=== PATIENT | female | born 1960 | race Two or more races ===

== ENCOUNTER → 2017-12-28 | Outpatient (REF) | payer OTHER | LOC: M SFHCLERA 11:17 | DX: K13.79 Other lesions of oral mucosa (principal); R50.9 Fever, unspecified ==

== ENCOUNTER 2018-03-20 20:24 | Emergency (ER) | payer OTHER ==
[2018-03-20] MEDS: NS 500 ML IV (22:18)
[2018-03-20 22:24] LABS: BASO # 0.1 10^3/uL (0.0-0.2); BASO % 0.8 % (0.0-1.0); EOS # 0.2 10^3/uL (0.0-0.50); EOS % 1.7 % (0.0-3.0); HEMATOCRIT 39.9 % (36.0-47.0); HEMOGLOBIN 13.4 g/dl (12.0-15.5); IMMATURE GRANULOCYTE % 0.1 % (0-3.0); LYMPH # 3.9 10^3/uL (1.5-4.5); LYMPH % 41.6 % (24.0-44.0); MEAN CORPUSCULAR HEMOGLOBIN 24.9 pg (27.0-33.0); MEAN CORPUSCULAR HGB CONC 33.6 g/dl (32.0-36.5); MONO # 0.5 10^3/uL (0.0-0.8); MONO % 5.6 % (0.0-5.0); NEUTROPHILS # 4.7 10^3/uL (1.8-7.7); NEUTROPHILS % 50.2 % (36.0-66.0); PLATELET COUNT, AUTOMATED 303 10^3/uL (150-450); RED BLOOD COUNT 5.39 10^6/uL (4.00-5.40); RED CELL DISTRIBUTION WIDTH 14.4 % (11.5-14.5); WHITE BLOOD COUNT 9.3 10^3/uL (4.0-10.0)
[2018-03-20 22:51] LABS: ALBUMIN 4.1 GM/DL (3.2-5.2); ALBUMIN/GLOBULIN RATIO 1.05 (1.00-1.93); ALKALINE PHOSPHATASE 98 U/L (45-117); ALT/SGPT 39 U/L (12-78); ANION GAP 7 MEQ/L (8-16); AST/SGOT 28 U/L (7-37); BILIRUBIN,DIRECT < 0.1 MG/DL (0.0-0.2); BILIRUBIN,TOTAL 0.4 MG/DL (0.2-1.0); BLOOD UREA NITROGEN 13 MG/DL (7-18); CALCIUM LEVEL 9.1 MG/DL (8.5-10.1); CARBON DIOXIDE LEVEL 30 MEQ/L (21-32); CHLORIDE LEVEL 102 MEQ/L (98-107); CK-MB VALUE MASS 1.1 NG/ML (<3.6); CPK CREATINE PHOSPHOKINASE 79 U/L (26-192); CREATININE FOR GFR 0.59 MG/DL (0.55-1.30); GLOMERULAR FILTRATION RATE > 60.0 (>51); GLUCOSE, FASTING 136 MG/DL (70-100); LIPASE 192 U/L (73-393); MB/CK RELATIVE INDEX 1.39 (< OR =4); POTASSIUM SERUM 3.6 MEQ/L (3.5-5.1); SODIUM LEVEL 139 MEQ/L (136-145); TROPONIN I < 0.02 NG/ML (< 0.10)
[2018-03-20] MEDS: MAALOX 30 ML SUSP *UDC PO (22:56)
== END 2018-03-21 00:17 | disposition home or self-care (01) ==
LOC: M ED 03-21 00:17
DX: R14.0 Abdominal distension (gaseous) (principal); R00.2 Palpitations; Z79.899 Other long term (current) drug therapy
CPT/HCPCS: 93005

== ENCOUNTER → 2018-09-04 | Outpatient (REF) | payer OTHER | LOC: M SFHCLERA 16:44 | DX: J02.9 Acute pharyngitis, unspecified (principal) ==

== ENCOUNTER 2019-03-30 16:00 | Emergency (ER) | payer OTHER ==
[~2019-03-30] VITALS: Ht 162.6 cm; Wt 55.7 kg
[~2019-03-30 16:00] MED LIST: CALCCHW19 PO; CLAR1TAB2 PO; HYDR12CA PO; PRAV20TA2 PO; VITATAB11 PO
[2019-03-30] MEDS ORDERED: IBUP200T47 (16:07)
[2019-03-30] MEDS ORDERED: NS 1,000 ML IV SCH (16:24)
[2019-03-30] MEDS ORDERED: KETOROLAC 30 MG/ML VIAL (J1885) IV ONE (16:30)
[2019-03-30] MEDS ORDERED: ONDANSETRON 4MG/2ML VIAL (J2405) IV ONE (16:30)
--- NOTE | 2019-03-30 17:06 | REPVR ---
EXAM: CT Abdomen and Pelvis Without Contrast EXAM DATE/TIME: 03/30/2019 4:33 PM CLINICAL HISTORY: 58 years old, female; Abdominal pain; Colic; Additional info: Left renal calc? TECHNIQUE: Imaging protocol: Axial computed tomography images of the abdomen and pelvis without contrast. Coronal and sagittal reformatted images were created and reviewed. Radiation optimization: All CT scans at this facility use at least one of these dose optimization techniques: automated exposure control; mA and/or kV adjustment per patient size (includes targeted exams where dose is matched to clinical indication); or iterative reconstruction. COMPARISON: No relevant prior studies available. FINDINGS: ABDOMEN: Liver: Normal. No mass. Gallbladder and bile ducts: There has been a cholecystectomy. Pancreas: Normal. No ductal dilation. Spleen: Normal. No splenomegaly. Adrenals: Normal. No mass. Kidneys and ureters: No renal or ureteral calculi demonstrated. Stomach and bowel: There is gastric distention with retained secretions. Clinical correlation to exclude gastroparesis or gastric outlet obstruction suggested. There is increased feces throughout the colon consistent with constipation. Appendix: No evidence of appendicitis. PELVIS: Bladder: Unremarkable as visualized. Reproductive: Unremarkable as visualized. ABDOMEN and PELVIS: Intraperitoneal space: Normal. No free air. No significant fluid collection. Bones/joints: The spine demonstrates mild degenerative changes. Moderate central spinal stenosis L4-5. Soft tissues: Small inguinal hernias. Vasculature: Normal. No abdominal aortic aneurysm. Lymph nodes: Normal. No enlarged lymph nodes. IMPRESSION: 1. Moderate central spinal stenosis L4-5. 2. There has been a cholecystectomy. 3. No renal or ureteral calculi demonstrated. 4. There is gastric distention with retained secretions. Clinical correlation to exclude gastroparesis or gastric outlet obstruction suggested. 5. There is increased feces throughout the colon consistent with constipation. Electronically signed by: Shaan Lamb On 03/30/2019 17:06:20 PM
[2019-03-30 17:08] LABS: BASO # 0.1 10^3/uL (0.0-0.2); BASO % 0.7 % (0.0-1.0); EOS # 0.1 10^3/uL (0.0-0.50); EOS % 1.3 % (0.0-3.0); HEMATOCRIT 37.6 % (36.0-47.0); HEMOGLOBIN 12.9 g/dl (12.0-15.5); LYMPH # 3.2 10^3/uL (1.5-4.5); LYMPH % 31.4 % (24.0-44.0); MEAN CORPUSCULAR HEMOGLOBIN 25.9 pg (27.0-33.0); MEAN CORPUSCULAR HGB CONC 34.3 g/dl (32.0-36.5); MEAN CORPUSCULAR VOLUME 75.4 fl (80.0-96.0); MONO # 0.5 10^3/uL (0.0-0.8); MONO % 4.4 % (0.0-5.0); NEUTROPHILS # 6.4 10^3/uL (1.8-7.7); PLATELET COUNT, AUTOMATED 288 10^3/uL (150-450); RED BLOOD COUNT 4.99 10^6/uL (4.00-5.40); WHITE BLOOD COUNT 10.2 10^3/uL (4.0-10.0)
[2019-03-30 17:40] LABS: ALBUMIN 3.6 GM/DL (3.2-5.2); ALT/SGPT 35 U/L (12-78); BILIRUBIN,DIRECT < 0.1 MG/DL (0.0-0.2); BILIRUBIN,TOTAL 0.4 MG/DL (0.2-1.0); BLOOD UREA NITROGEN 21 MG/DL (7-18); CALCIUM LEVEL 9.2 MG/DL (8.8-10.2); CARBON DIOXIDE LEVEL 27 MEQ/L (21-32); CHLORIDE LEVEL 104 MEQ/L (98-107); CREATININE FOR GFR 0.71 MG/DL (0.55-1.30); GLOMERULAR FILTRATION RATE > 60.0 (>45); GLUCOSE, FASTING 256 MG/DL (70-100); LIPASE 261 U/L (73-393); POTASSIUM SERUM 3.7 MEQ/L (3.5-5.1); SODIUM LEVEL 139 MEQ/L (136-145); TOTAL PROTEIN 7.1 GM/DL (6.4-8.2)
[2019-03-30] MEDS ORDERED: MIRA3350 PO (17:40)
[2019-03-30 18:10] LABS: HEMOGLOBIN A1c 6.8 %
[2019-03-30 18:12] VITALS: BP 160/78
--- NOTE | 2019-04-02 14:38 | ED PDOC ---
Post-Departure Follow-Up ft michael watters faxed formal report of ct abd/p for fu Jacek Diaz MD April 02, 2019 14:38
== END 2019-03-30 18:32 | disposition home or self-care (01) ==
LOC: M ED 16:00
DX: K59.00 Constipation, unspecified (principal); R73.9 Hyperglycemia, unspecified; I51.9 Heart disease, unspecified; E78.5 Hyperlipidemia, unspecified; Z79.899 Other long term (current) drug therapy
CPT/HCPCS: 74176; 80048; 80076; 81001; 83036; 83690; 85025; 96361; 96374; 99284; J1885

== ENCOUNTER → 2021-04-30 | Outpatient (REF) | payer OTHER ==
[~2021-04-30] MED LIST changes: +IBUP-1427; +MIRA3350 PO
[2021-04-30 19:08] LABS: APPEARANCE, URINE HAZY (CLEAR); BACTERIA, URINE AUTO NEGATIVE (NEGATIVE); BILIRUBIN, URINE AUTO NEGATIVE (NEGATIVE); BLOOD, URINE BLOOD NEGATIVE (NEGATIVE); COLOR, URINE YELLOW (YELLOW); GLUCOSE, URINE (UA) AUTO NEGATIVE (NEGATIVE); KETONE, URINE AUTO NEGATIVE (NEGATIVE); LEUKOCYTE ESTERASE, URINE AUTO NEGATIVE (NEGATIVE); MUCUS, URINE SMALL (NEGATIVE); NITRITE, URINE AUTO NEGATIVE (NEGATIVE); PROTEIN, URINE AUTO NEGATIVE (NEGATIVE); RBC, URINE AUTO 0 /HPF (0-3); SQUAMOUS EPITHELIAL CELL UR AU 0 /HPF (0-6); UROBILINOGEN, URINE AUTO 0.2 mg/dL (0.0-2.0); WBC, URINE AUTO 0 /HPF (0-3)
== END ==
LOC: M LAB REF 16:34
PROVIDERS: ATTEND Physician Assistant Medical
DX: R30.0 Dysuria (principal)

== ENCOUNTER → 2021-10-28 | Outpatient (CLI) | payer OTHER, SELFPAY | LOC: M WHC 09:39 | PROVIDERS: ATTEND Student in an Organized Health Care Education/Training Program | DX: Z12.31 Encounter for screening mammogram for malignant neoplasm of breast (principal) ==

== ENCOUNTER → 2023-01-12 | Outpatient (CLI) | payer OTHER | LOC: M WHC 07:35 | PROVIDERS: ATTEND Student in an Organized Health Care Education/Training Program | DX: Z12.31 Encounter for screening mammogram for malignant neoplasm of breast (principal) ==

== ENCOUNTER 2023-06-05 06:01 | Day surgery (SDC) | payer OTHER ==
[~2023-06-05] VITALS: Ht 162.6 cm; Wt 52.6 kg
[~2023-06-05 06:01] MED LIST changes: +CVS5000S2 PO; +CYCLOPENTOLATE 1% OPHTH SOLN 2ML BTL OD SCH; +FLURBIPROFEN 0.03% OPHTH SOLN 2.5 ML OD SCH; +GLIP10TA18 PO; +HYDR-3490 PO; +JANU100T PO; +JARD1TAB PO; +LORA-674 PO; +PHENYLEPHRINE 2.5% OPHTH SOL 2ML OD SCH; +TETRACAINE 0.5% OPHTH SOLN 4ML OD SCH
[2023-06-05] MEDS ORDERED: LIDOCAINE 1% SDV 5ML VIAL As Ordered ONE (06:33)
[2023-06-05] MEDS ORDERED: LR 1,000 ML IV SCH (07:00)
[2023-06-05] MEDS ORDERED: MIDAZOLAM INJ 2MG/2ML VIAL As Ordered ONE (07:37)
[2023-06-05] MEDS ORDERED: fentaNYL 100 MCG/2 ML INJECTION As Ordered ONE (07:37)
[2023-06-05 08:37] VITALS: BP 130/91; TEMP 96.7; O2SAT 97
== END 2023-06-05 09:18 | disposition home or self-care (01) ==
LOC: M SDC 06:01
PROVIDERS: ATTEND Ophthalmology
DX: H25.11 Age-related nuclear cataract, right eye (principal); I10 Essential (primary) hypertension; E78.00 Pure hypercholesterolemia, unspecified; E11.9 Type 2 diabetes mellitus without complications; M19.90 Unspecified osteoarthritis, unspecified site; Z79.899 Other long term (current) drug therapy; Z88.6 Allergy status to analgesic agent
CPT/HCPCS: 66984; J2250; J3010; V2788

== ENCOUNTER → 2023-08-02 | Outpatient (REF) | payer OTHER ==
[~2023-08-02] MED LIST changes: -CYCLOPENTOLATE 1% OPHTH SOLN 2ML BTL OD SCH; -FLURBIPROFEN 0.03% OPHTH SOLN 2.5 ML OD SCH; +LORA-1041 PO; -LORA-674 PO; -PHENYLEPHRINE 2.5% OPHTH SOL 2ML OD SCH; -TETRACAINE 0.5% OPHTH SOLN 4ML OD SCH
[2023-08-02 22:27] LABS: APPEARANCE, URINE CLEAR (CLEAR); BACTERIA, URINE AUTO 1+ (NEGATIVE); BILIRUBIN, URINE AUTO NEGATIVE (NEGATIVE); BLOOD, URINE BLOOD 2+ (NEGATIVE); COLOR, URINE YELLOW (YELLOW); GLUCOSE, URINE (UA) AUTO 3+ mg/dL (NEGATIVE); KETONE, URINE AUTO NEGATIVE (NEGATIVE); LEUKOCYTE ESTERASE, URINE AUTO 3+ (NEGATIVE); MUCUS, URINE SMALL (NEGATIVE); NITRITE, URINE AUTO NEGATIVE (NEGATIVE); PROTEIN, URINE AUTO NEGATIVE (NEGATIVE); RBC, URINE AUTO 69 /HPF (0-3); SQUAMOUS EPITHELIAL CELL UR AU 0 /HPF (0-6); UROBILINOGEN, URINE AUTO 0.2 mg/dL (0.0-2.0); WBC, URINE AUTO 51 /HPF (0-3)
== END ==
LOC: M LAB REF 22:10
PROVIDERS: ATTEND Physician Assistant
DX: N39.0 Urinary tract infection, site not specified (principal)

== ENCOUNTER → 2024-01-02 | Outpatient (REF) | payer MEDICARE, OTHER ==
[2024-01-02 13:43] LABS: APPEARANCE, URINE CLEAR (CLEAR); BACTERIA, URINE AUTO NEGATIVE (NEGATIVE); BILIRUBIN, URINE AUTO NEGATIVE (NEGATIVE); BLOOD, URINE BLOOD NEGATIVE (NEGATIVE); COLOR, URINE STRAW (YELLOW); GLUCOSE, URINE (UA) AUTO 3+ mg/dL (NEGATIVE); KETONE, URINE AUTO NEGATIVE (NEGATIVE); LEUKOCYTE ESTERASE, URINE AUTO 1+ (NEGATIVE); MUCUS, URINE SMALL (NEGATIVE); NITRITE, URINE AUTO NEGATIVE (NEGATIVE); PROTEIN, URINE AUTO NEGATIVE (NEGATIVE); RBC, URINE AUTO 1 /HPF (0-3); SPECIFIC GRAVITY URINE AUTO 1.024 (1.002-1.035); SQUAMOUS EPITHELIAL CELL UR AU 0 /HPF (0-6); UROBILINOGEN, URINE AUTO 0.2 mg/dL (0.0-2.0); WBC, URINE AUTO 27 /HPF (0-3)
== END ==
LOC: M LAB REF 12:10
PROVIDERS: ATTEND Physician Assistant
DX: N39.0 Urinary tract infection, site not specified (principal)

== ENCOUNTER 2024-02-27 20:03 | Emergency (ER) | payer MEDICARE, OTHER ==
[~2024-02-27] VITALS: Ht 162.6 cm; Wt 53.1 kg
[2024-02-27 21:15] LABS: BASO # 0.1 10^3/uL (0.0-0.2); BASO % 0.6 % (0.0-1.0); EOS # 0.2 10^3/uL (0.0-0.5); EOS % 1.3 % (0.0-3.0); HEMOGLOBIN 15.4 g/dl (12.0-15.5); LYMPH % 28.4 % (24.0-44.0); MEAN CORPUSCULAR HEMOGLOBIN 24.9 pg (27.0-33.0); MEAN CORPUSCULAR HGB CONC 33.5 g/dl (32.0-36.5); MEAN CORPUSCULAR VOLUME 74.4 fl (80.0-96.0); MONO # 0.6 10^3/uL (0.0-0.8); MONO % 4.5 % (2.0-8.0); NEUTROPHILS # 9.1 10^3/uL (1.5-8.5); NEUTROPHILS % 64.7 % (36.0-66.0); PLATELET COUNT, AUTOMATED 347 10^3/uL (150-450); RED BLOOD COUNT 6.18 10^6/uL (4.00-5.40); WHITE BLOOD COUNT 14.1 10^3/uL (4.0-10.0)
[2024-02-27 21:33] LABS: INR 0.98; PARTIAL THROMBOPLASTIN TIME 33.6 SECONDS (24.8-34.2); PROTHROMBIN TIME 12.7 SECONDS (12.5-14.5)
[2024-02-27 21:46] LABS: BLOOD UREA NITROGEN 31 MG/DL (9-23); CALCIUM LEVEL 9.8 MG/DL (8.3-10.6); CARBON DIOXIDE LEVEL 32 MMOL/L (20-31); CHLORIDE LEVEL 99 MMOL/L (98-107); CK-MB VALUE MASS < 1.0 NG/ML (<3.6); CREATININE FOR GFR 0.56 MG/DL (0.55-1.30); GLOMERULAR FILTRATION RATE > 60.0 (>45); GLUCOSE, FASTING 230 MG/DL (74-106); POTASSIUM SERUM 3.7 MMOL/L (3.5-5.1); SODIUM LEVEL 137 MMOL/L (136-145)
[2024-02-27 21:49] LABS: CPK CREATINE PHOSPHOKINASE 67 U/L (34-145); MB/CK RELATIVE INDEX 1.49 (< OR =4)
[2024-02-27 23:51] LABS: CK-MB VALUE MASS < 1.0 NG/ML (<3.6)
[2024-02-27 23:52] LABS: CPK CREATINE PHOSPHOKINASE 64 U/L (34-145); MB/CK RELATIVE INDEX 1.56 (< OR =4)
[2024-02-28 07:45] LABS: LIPASE 68 U/L (12-53)
[2024-02-28 07:47] LABS: ALBUMIN 4.2 G/DL (3.2-5.2); ALKALINE PHOSPHATASE 84 U/L (46-116); ALT/SGPT 22 U/L (7.0-40); AST/SGOT 14 U/L (<34); BILIRUBIN,DIRECT < 0.1 MG/DL (<0.4); BILIRUBIN,TOTAL 0.3 MG/DL (0.3-1.2); TOTAL PROTEIN 8.4 G/DL (5.7-8.2)
[2024-02-28] MEDS ORDERED: PANT40TA29 PO (08:00)
[2024-02-28 08:11] VITALS: BP 149/88; TEMP 97.1; O2SAT 98
== END 2024-02-28 08:13 | disposition home or self-care (01) ==
LOC: M ED 20:03
DX: R10.13 Epigastric pain (principal); E11.9 Type 2 diabetes mellitus without complications; I10 Essential (primary) hypertension; Z79.899 Other long term (current) drug therapy; Z79.1 Long term (current) use of non-steroidal anti-inflammatories (NSAID); Z79.84 Long term (current) use of oral hypoglycemic drugs

== ENCOUNTER → 2024-03-06 | Outpatient (CLI) | payer MEDICARE, OTHER ==
[~2024-03-06] MED LIST changes: +PANT40TA29 PO
== END ==
LOC: M WHC 15:43
PROVIDERS: ATTEND Nurse Practitioner Primary Care
DX: Z12.31 Encounter for screening mammogram for malignant neoplasm of breast (principal)

== ENCOUNTER → 2025-05-08 | Outpatient (CLI) | payer MEDICARE, OTHER ==
[~2025-05-08] MED LIST changes: +GLIP-320 PO; -GLIP10TA18 PO; +HYDR12.510 PO; -HYDR12CA PO; -PRAV20TA2 PO; +PRAV20TA78 PO; +SIME1CAP4 PO
== END ==
LOC: M WUC 09:29
PROVIDERS: ATTEND Nurse Practitioner Family
DX: M19.90 Unspecified osteoarthritis, unspecified site (principal)

== ENCOUNTER 2025-05-28 20:10 | Emergency (ER) | payer MEDICARE, OTHER ==
[~2025-05-28] VITALS: Ht 165.1 cm; Wt 52.7 kg
[~2025-05-28 20:10] MED LIST changes: -SIME1CAP4 PO
[2025-05-28 21:07] LABS: BASO # 0.1 10^3/uL (0.0-0.2); BASO % 0.7 % (0.0-1.0); EOS # 0.2 10^3/uL (0.0-0.5); EOS % 1.6 % (0.0-3.0); LYMPH # 3.8 10^3/uL (1.5-5.0); LYMPH % 37.4 % (24.0-44.0); MONO # 0.6 10^3/uL (0.0-0.8); MONO % 6.2 % (2.0-8.0); NEUTROPHILS # 5.4 10^3/uL (1.5-8.5); NEUTROPHILS % 53.8 % (36.0-66.0); PLATELET COUNT, AUTOMATED 279 10^3/uL (150-450)
[2025-05-28 21:42] LABS: CK-MB VALUE MASS 1.3 NG/ML (<3.6)
[2025-05-28 21:44] LABS: CALCIUM LEVEL 8.9 MG/DL (8.3-10.6); CARBON DIOXIDE LEVEL 29 MMOL/L (20-31); CHLORIDE LEVEL 100 MMOL/L (98-107); CREATININE FOR GFR 0.79 MG/DL (0.55-1.30); GLOMERULAR FILTRATION RATE 82.5 (>45); POTASSIUM SERUM 3.7 MMOL/L (3.5-5.1); SODIUM LEVEL 140 MMOL/L (136-145)
[2025-05-28 21:48] LABS: CPK CREATINE PHOSPHOKINASE 61 U/L (34-145); MB/CK RELATIVE INDEX 2.13 (< OR =4)
[2025-05-28 22:56] LABS: CK-MB VALUE MASS 1.1 NG/ML (<3.6)
[2025-05-28 22:59] LABS: CPK CREATINE PHOSPHOKINASE 59 U/L (34-145); MB/CK RELATIVE INDEX 1.86 (< OR =4)
[2025-05-28 23:37] LABS: ALT/SGPT 26 U/L (7.0-40); AST/SGOT 21 U/L (<34)
[2025-05-29] MEDS: SIMETHICONE 80MG CHEW TAB PO ONE (00:16)
[2025-05-29] MEDS ORDERED: SIME1CAP4 PO (02:48)
[2025-05-29 03:00] VITALS: BP 133/69; TEMP 97.6; O2SAT 95
== END 2025-05-29 03:05 | disposition home or self-care (01) ==
LOC: M ED 20:10
DX: R14.0 Abdominal distension (gaseous) (principal); E11.9 Type 2 diabetes mellitus without complications; Z79.1 Long term (current) use of non-steroidal anti-inflammatories (NSAID); Z79.84 Long term (current) use of oral hypoglycemic drugs; Z79.899 Other long term (current) drug therapy

== ENCOUNTER → 2025-06-21 | Outpatient (REF) | payer MEDICARE, OTHER ==
[~2025-06-21] MED LIST changes: +SIME1CAP4 PO
== END ==
LOC: M LAB REF 18:02
PROVIDERS: ATTEND Physician Assistant Medical
DX: R35.0 Frequency of micturition (principal)

== ENCOUNTER → 2025-09-18 | Outpatient (CLI) | payer MEDICARE, OTHER ==
[~2025-09-18] MED LIST changes: +CYAN500T14 PO; +JARD1TAB3 PO; +LEVOTAB10 PO
== END ==
LOC: M WHC 08-21 08:24
PROVIDERS: ATTEND Nurse Practitioner Primary Care
DX: Z12.31 Encounter for screening mammogram for malignant neoplasm of breast (principal)

== ENCOUNTER 2025-09-24 07:33 | Day surgery (SDC) | payer MEDICARE, OTHER ==
[~2025-09-24] VITALS: Ht 165.1 cm; Wt 55.8 kg
[2025-09-24] MEDS: LIDOCAINE 1% SDV 5 ML VIAL As Ordered ONE (06:43)
[~2025-09-24 07:33] MED LIST changes: +PHENYLEPHRINE 10% OPHTH SOL 5ML OS PRN
[2025-09-24] MEDS ORDERED: MIDAZOLAM INJ 2 MG/2 ML VIAL As Ordered ONE (07:54)
[2025-09-24] MEDS: OFLOXACIN 0.3 % (OCUFLOX) OPTH SOL 5ML OS ONE (09:52)
[2025-09-24] MEDS: LIDOCAINE 3.5% 1 ML OPHTH TOPICAL GEL OU ONE (09:52)
[2025-09-24] MEDS: PHENYLEPHRINE 2.5% OPHTH SOL 2ML OS SCH (09:52)
[2025-09-24] MEDS: CYCLOPENTOLATE 1% OPHTH SOLN 2 ML BTL OS SCH (09:52)
[2025-09-24] MEDS: TROPICAMIDE 1% OPHTH SOLN 15ML OS SCH (09:52)
[2025-09-24] MEDS: BSS IRRIG/VANCO(10MG)/TOBRA(5MG)/EPINEPH(1:1000-0.5CC)500ML BAG-ORONLY As Ordered ONE (10:21)
[2025-09-24] MEDS: CEFUROXIME 1 MG/0.1 ML INTRACAMERAL INJ As Ordered ONE (10:25)
[2025-09-24 11:25] VITALS: BP 120/74; TEMP 97.4; O2SAT 99
== END 2025-09-24 11:29 | disposition home or self-care (01) ==
LOC: M SDC 07:33
PROVIDERS: ATTEND Ophthalmology
DX: E11.36 Type 2 diabetes mellitus with diabetic cataract (principal); H25.12 Age-related nuclear cataract, left eye; I10 Essential (primary) hypertension; E78.00 Pure hypercholesterolemia, unspecified; Z79.899 Other long term (current) drug therapy; Z79.84 Long term (current) use of oral hypoglycemic drugs
CPT/HCPCS: 66984; J0697; J2250; J3010; V2788